=== PATIENT | male | born 1955 | race Caucasian/White ===

== ENCOUNTER → 2018-10-22 | Outpatient (CLI) | payer SELFPAY ==
[~2018-10-22] MED LIST: ASPI-1471 PO; ASPI-719 PO; METO25TA91 PO; NITR0.4T3 SL
== END ==
LOC: AMB 11:51
PROVIDERS: ATTEND Nurse Practitioner
DX: I21.4 Non-ST elevation (NSTEMI) myocardial infarction (principal)
CPT/HCPCS: A0425; A0426